=== PATIENT | male | born 1995 | race American Indian/Alaskan Native ===

== ENCOUNTER 2017-05-14 09:02 | Emergency (ER) | payer MEDICAID, OTHER ==
[2017-05-14 09:14] VITALS: TEMP 98.5
--- NOTE | 2017-05-14 09:27 | ED PDOC ---
Arrival/HPI - General Chief Complaint: Eye Problem Time Seen by Provider: 05/14/17 09:27 Historian: Patient - History of Present Illness Narrative History of Present Illness (Text): 05/14/17 09:27 This 21 yo male who denies pmh, presents to this ED c/o left eye photophobia x 3 days. Patient stated while playing basketball, the ball hit his left eye. Patient stated he does not visual changes, but he has mild photophobia. Patient denies eye pain when eyes are not exposed to light, denies contact lens use, denies periorbital pain, dizziness, MITCHELL, or abnormal gait. Time/Duration: Other (3 days ago) Context: Other (playing basketball) Past Medical History - Provider Review Nursing Documentation Reviewed: Yes - Psychiatric Hx Substance Use: No Family/Social History - Physician Review Nursing Documentation Reviewed: Yes Family/Social History: Other (non-contributory) Smoking Status: Never Smoked Hx Alcohol Use: No Hx Substance Use: No Allergies/Home Meds Allergies/Adverse Reactions: Allergies No Known Allergies Allergy (Verified 05/14/17 09:09) Home Medications: Home Meds Medication Instructions Recorded Confirmed No Known Home Med 05/14/17 05/14/17 Review of Systems - Review of Systems Constitutional: Normal. absent: Fatigue, Weight Change, Fevers Eyes: Photophobia. absent: Vision Changes, Eye Pain ENT: Normal Respiratory: Normal. absent: SOB, Cough, Sputum Cardiovascular: Normal. absent: Chest Pain, Palpitations Gastrointestinal: Normal. absent: Abdominal Pain, Nausea, Vomiting Genitourinary Male: Normal. absent: Dysuria, Frequency, Hematuria Musculoskeletal: Normal Skin: Normal. absent: Rash Neurological: Normal. absent: Headache, Dizziness, Focal Weakness, Gait Changes , Speech Changes, Facial Droop, Disequilibrium, Seizure Endocrine: Normal Hemo/Lymphatic: Normal Psychiatric: Normal Physical Exam Vital Signs Temp Pulse Resp BP Pulse Ox 05/14/17 09:09 98.5 F 67 16 137/78 97 Temperature: Afebrile Blood Pressure: Normal Pulse: Regular Respiratory Rate: Normal Appearance: Positive for: Well-Appearing, Non-Toxic, Comfortable Pain Distress: None Mental Status: Positive for: Alert and Oriented X 3 - Systems Exam Head: Present: Atraumatic, Normocephalic, Other (no raccoon sign. no nesbitt sign) Pupils: Present: PERRL, Other (no hyphema) Extroacular Muscles: Present: EOMI. No: Entrapment Conjunctiva: Present: Normal, Other (Fluorescine stain was negative. No corneal FB, no corneal abrasion, no corneal ulcer, no corneal dentritic lesion) . No: Injected, Icteric Ears: Present: Normal, NORMAL TM, Normal Canal, Other (no hemotympanum). No: Erythema, TM Bulging, Fluid, TM Perf Mouth: Present: Moist Mucous Membranes Neck: Present: Normal Range of Motion, Trachea Midline. No: Meningeal Signs, MIDLINE TENDERNESS, Paraspinal Tenderness Upper Extremity: Present: Normal Inspection, Normal ROM Lower Extremity: Present: Normal Inspection, Normal ROM Neurological: Present: GCS=15, CN II-XII Intact, Speech Normal, Motor Func Grossly Intact, Normal Sensory Function, Normal Cerebellar Funct, Gait Normal, Memory Normal Skin: Present: Warm, Dry, Normal Color. No: Rashes Psychiatric: Present: Alert, Oriented x 3, Normal Insight, Normal Concentration Medical Decision Making ED Course and Treatment: 05/14/17 10:[address] Walsh Historical Society Director. I reviewed c/o photophobia after a basketball eye injury without visual changes. He suspects for iritis. He recommended to have patient coming in to his office right away. Re-evaluation Time: 10:05 Reassessment Condition: Re-examined, Improved - Medication Orders Current Medication Orders: Discontinued Medications Fluorescein Sodium (Dejne-I-Qvbdc A.T.) 2 mg OS ONCE ONE Stop: 05/14/17 09:39 Disposition/Present on Arrival - Present on Arrival Any Indicators Present on Arrival: No History of DVT/PE: No History of Uncontrolled Diabetes: No Urinary Catheter: No History of Decub. Ulcer: No History Surgical Site Infection Following: None - Disposition Have Diagnosis and Disposition been Completed?: Yes Diagnosis: Iritis of left eye, Photophobia of left eye Disposition: HOME/ ROUTINE Disposition Time: 10:05 Patient Plan: Discharge Condition: GOOD Discharge Instructions (ExitCare): Iritis (ED) Additional Instructions: Dr. Walsh wants to see you right away. Go directly to his office upon discharge from this ED today. Return to emergency if symptoms worsen. Referrals: PCP,NO [Primary Care Provider] - Follow up with primary Geronimo Walsh MD [Staff Provider] - Follow up with primary Forms: [employer] (Chinese), WORK NOTE
[2017-05-14] MEDS ORDERED: Fluorescein 1 mg Ophthalmic Strip OS ONE (09:38)
[2017-05-14 10:16] VITALS: BP 135/80; PULSE 62; RESP 17; O2SAT 100
== END 2017-05-14 10:18 | disposition home or self-care (01) ==
LOC: ED 09:02
DX: H20.9 Unspecified iridocyclitis (principal); H53.142 Visual discomfort, left eye

== ENCOUNTER 2017-05-21 09:41 | Emergency (ER) | payer MEDICAID, OTHER ==
[2017-05-21 09:55] VITALS: TEMP 98.2; BMI 36.5
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
[2017-05-21 11:25] VITALS: BP 135/80; PULSE 77; RESP 18; O2SAT 99
== END 2017-05-21 11:24 | disposition home or self-care (01) ==
LOC: ED 09:41
DX: H20.9 Unspecified iridocyclitis (principal)